=== PATIENT | male | born 1955 | race Caucasian/White ===

== ENCOUNTER → 2020-07-11 | Outpatient (CLI) | payer BC, OTHER ==
[~2020-07-11] MED LIST: ASPIRIN EC325 M1 PO; AUGMENTIN 875875 MG PO; COLACE 100 MG100 MG; MULTI VITAMIN1 EACH PO; OXYCODONE-ACET1 EACH PO
== END ==
LOC: LAB 08:20
PROVIDERS: ATTEND Surgery
DX: Z01.812 Encounter for preprocedural laboratory examination (principal); Z20.822 Contact with and (suspected) exposure to COVID-19

== ENCOUNTER 2020-07-15 07:44 | Observation (INO) | payer BC, OTHER ==
[~2020-07-15] VITALS: Ht 167.6 cm; Wt 76.2 kg
--- NOTE | ~2020-07-15 | O ---
[facility] [place] [address] OPERATIVE REPORT Name: MACIEL HODGSON Room #: 448-P [facility] M.R.#: [id number] Admission: 07/15/20 Attend Phys: Inocente Martínez MD Discharge: Date of : 57 Report #: [id number] THIS REPORT FOR: cc: Idris Thomas James A. DO Chu, Peter Y. MD ~ DATE OF SERVICE: 07/15/2020 PREOPERATIVE DIAGNOSES: 1. Left inguinal hernia. 2. Umbilical hernia. POSTOPERATIVE DIAGNOSES: 1. Left indirect inguinal hernia. 2. Umbilical hernia. PROCEDURE PERFORMED: Laparoscopic repair of left inguinal hernia with mesh, repair of umbilical hernia with primary suture repair. ANESTHESIA: General. SURGEON: Inocente Martínez MD COMPLICATIONS: None. ESTIMATED BLOOD LOSS: 20 mL. PROCEDURE NOTE: With the patient under general anesthesia, the abdomen was prepped and draped in sterile fashion. Maddox catheter was placed. IV antibiotic was administered. Incision was made lateral to the umbilicus and carried underneath the umbilicus on the left side. The anterior fascia, rectus fascia was identified. This was incised transversely. The muscle was spread and the space between the muscle and the posterior fascia was dissected bluntly with fingertip. A balloon trocar was placed through the space. CO2 was placed. A 5 mm trocar was placed about 2 inches below the umbilicus under visualization. The rest of properitoneal space was opened up. There is a branch from the inferior epigastric artery that is pretty close to this area and this was preserved. The properitoneal space was opened up. The second 5 mm trocar was placed slightly right of the midline about an inch and a half below the initial 5 mm trocar. Dissection carried out showed a pretty weakened floor, but no true direct defect. The pubic bone was all socked, was isolated. A large indirect sac was identified lateral to the inferior epigastric vessel. The sac was free from the abdominal wall. The sac was then reduced, brought off of the cord structure. The sac was pretty long and this part took quite a bit to do. Sac was free from the vas, which is just adjacent to it. The sac was [facility] [address] [address] OPERATIVE REPORT Name: MACIEL HODGSON Room #: 448-P [facility] M.R.#: [id number] Admission: 07/15/20 Attend Phys: Inocente Martínez MD Discharge: Date of : 57 Report #: [id number] freed from the end where I could see the sac terminated. The sac was brought back into the properitoneal space. The patient also had a pretty large lipoma of the cord that was reduced. The patient had a large internal ring. A large size 3DMax lightweight mesh was placed through the balloon trocar. This was opened up. This covered the internal ring well. This also the lipoma and the sac from the internal ring. The mesh was tacked superolaterally to the wall with SorbaFix, inferomedially to the Mauricio's ligament just above the pubic bone, and then superomedially to the rectus muscle. The mesh seated well. During the procedure, the peritoneum was thin and defect must have been made in the peritoneum. Air traversed inside the abdominal cavity. A 5 mm trocar was placed intraabdominally and a smoke evacuator was used to allow the air to come out the abdominal cavity. This allowed a view of the properitoneal space. The properitoneal space trocar was removed. The balloon was used to insufflate the abdominal cavity. A 5 mm scope looked though this. There was no injury to the intestines. The peritoneum seems mostly intact. The trocars were removed. The incision underneath the umbilicus was extended and properitoneal fat was free from the overlying skin and then from the fascia edges. The fascia defect is about 1.5 cm in more of an elongated shape. The craniocaudad dimension is not very far apart. The fascia edges were cleaned off and the fascia was closed with 0 PDS [id number] x 2. Really, there was no undue tension. Irrigation was performed. The fascia defect over the rectus muscle was closed with 0 Vicryl [id number] x 2. Skin was irrigated. Skin was closed with 5-0 PDS. Steri-Strip, Band-Aids applied. Air was down in the scrotum and this was evacuated. The patient was then awakened and taken to recovery and tolerated the procedure well. By: 2150 Inocente Martínez MD /nt
[2020-07-15 08:17] LABS: HEMOGLOBIN 16.3 gm/dL (14.0-18.0)
[2020-07-15 09:16] VITALS: BP 139/96
[2020-07-15] MEDS ORDERED: PERCOCET 5-3251 EACH PO (12:17)
[2020-07-15 13:30] VITALS: BP 139/89
--- NOTE | 2020-07-15 16:47 | NUR ---
ASSUMED PT CARE FROM PACU. PT HAD LEFT INGUINAL HERNIA REPAIR TODAY AND HAVE 4 LAP SITE. PT IS ALERT & ORIENTED X4. PT C/O LEFT LOWER QUAD ABDOMINAL PAIN & GIVEN PAIN MEDS TODAY. PT IV SITE ON R HAND. PT UP AD LUDWIN. DISCHARGE ORDER FOR TOMORROW. INSTRUCTION WAS TO CALL TODD (FRIEND) TO RIDE TAMMIE. WILL CONTINUE TO MONITOR PT. PT ON THE BED SLEEPING, BED ON THE LOWEST POSITION, SIDE RAILS UP X2, CALL LIGHT WITHIN REACH.
--- NOTE | 2020-07-16 04:00 | NUR ---
PT IS S/P LAP HERNIA REPAIR.LAP SITES LOOK OKAY WITH BANDAIDS. PT IS UP AD LUDWIN IN ROOM, PT ALSO DID A FEW LAPS ROUND THE HALLWAYS.ROOM AIR, NO DISTRESS. IVF AND IV ABTS GIVEN. PLAN TO D/C HOME TODAY.
[2020-07-16 04:27] VITALS: BP 146/97
[2020-07-16 12:12] VITALS: BP 146/97
--- NOTE | 2020-07-16 20:39 | NUR ---
ASSUMED PT CARE AROUND 0730. PT ALERT X ORIENTED X4. VSS. UP AD LUDWIN. ON OBSERVATION STATUS. IV RT HAND /NS/50ML/HR. FALL PREACUATION IN PLACE. CALL LIGHT IN REACH. WILL CONT TO MONITOR. PT GETTING DISCHARGED AROUND 1000.
== END 2020-07-16 12:58 | disposition home or self-care (01) ==
LOC: OR 07:44 → TBA 07:44 → OR 10:37 → 4S 13:34
PROVIDERS: ADMIT Surgery; ATTEND Surgery
DX: K40.90 Unilateral inguinal hernia, without obstruction or gangrene, not specified as recurrent (principal); K42.9 Umbilical hernia without obstruction or gangrene; D72.829 Elevated white blood cell count, unspecified; Z20.822 Contact with and (suspected) exposure to COVID-19
CPT/HCPCS: 50010; 50101; 50411; 50555; 50848; 51489; 52265; 53065; 53307; 56525; 56526; 56719; 58574; 70005